=== PATIENT | female | born 1950 ===

== ENCOUNTER 2024-02-09 14:14 | Day surgery (SDC) | payer MEDICARE, OTHER ==
[2024-02-09] VITALS (9 sets, daily range): BP systolic 115–157; BP diastolic 49–74; PULSE 69–79; RESP 16; TEMP 98.1; O2SAT 93–98
[~2024-02-09] VITALS: Ht 162.6 cm; Wt 75.4 kg
[2024-02-09] MEDS ORDERED: CLOP75TA34 PO (14:51)
[2024-02-09] MEDS ORDERED: PANT40TA54 PO (14:51)
[2024-02-09] MEDS ORDERED: LISI20TA28 PO (14:51)
[2024-02-09] MEDS ORDERED: ACYC-128 PO (14:51)
[2024-02-09] MEDS ORDERED: ROSU20TA73 PO (14:51)
[2024-02-09] MEDS ORDERED: DICY20TA17 PO (14:51)
[2024-02-09 15:25] LABS: BASOPHILS % (AUTO) 0.5 % (0-1); EOSINOPHILS # (AUTO) 0.2 X10'3 (0-0.9); EOSINOPHILS % (AUTO) 2.2 % (0-6); HEMATOCRIT 38.4 % (35.0-45.0); HEMOGLOBIN 12.9 g/dl (12.0-16.0); LYMPHOCYTES # (AUTO) 2.3 X10'3 (1.1-4.8); LYMPHOCYTES % (AUTO) 23.5 % (21-51); MEAN CORPUSCULAR HEMOGLOBIN 31.3 PG (27.0-31.0); MEAN CORPUSCULAR HGB CONC 33.6 g/dL (33.0-36.5); MEAN CORPUSCULAR VOLUME 93.2 FL (78-98); MEAN PLATELET VOLUME 7.6 FL (7.4-10.4); MONOCYTES # (AUTO) 0.9 X10'3 (0-0.9); MONOCYTES % (AUTO) 9.6 % (2-12); NEUTROPHILS # (AUTO) 6.2 X10'3 (1.8-7.7); NEUTROPHILS % (AUTO) 64.2 % (42-75); PLATELET COUNT 322 X10'3 (140-440); RED BLOOD COUNT 4.12 X10'6 (4.20-5.60); RED CELL DISTRIBUTION WIDTH 13.4 % (11.5-14.5); WHITE BLOOD COUNT 9.7 X10'3 (4.5-11.0)
[2024-02-09 15:38] LABS: APTT 25 SECONDS (22-32); PROTHROMBIN TIME 10.3 SECONDS (9.0-12.0)
[2024-02-09 15:42] LABS: ALBUMIN 3.1 G/DL (3.4-5.0); ANION GAP 12 (8-16); BLOOD UREA NITROGEN 18 MG/DL (7-18); BUN/CREATININE RATIO 23.4 (10.0-20.0); CALCIUM 8.6 MG/DL (8.5-10.1); CHLORIDE 108 MMOL/L (99-107); CREATININE 0.77 MG/DL (0.40-0.90); GLUCOSE 70 MG/DL (70-104); SODIUM 143 MMOL/L (135-145); eCRCL 56 ML/MIN; eGFR 73 ML/MIN
[2024-02-09 15:45] LABS: POTASSIUM 4.2 MMOL/L (3.5-5.1)
[2024-02-09] MEDS: diphenhydrAMINE 25mg capsule PO PRN (15:52)
[2024-02-09] MEDS: normal saline 1,000 ML IV SCH (15:55)
[2024-02-09] MEDS: LORazepam 0.5 MG tablet PO PRN (15:55)
[2024-02-09] MEDS ORDERED: heparin 1,000unit/ml 10ml vial 0 ML ONE (16:04)
[2024-02-09] MEDS ORDERED: LIDOcaine 1% 30ml preserv. free vial ONE (16:04)
[2024-02-09] MEDS ORDERED: phenylephrine 10mg/ml inj. -priapism dosing ONE (16:04)
[2024-02-09] MEDS ORDERED: DOPamine 400mg/D5W 250ml 0 ML IV ONE (16:05)
[2024-02-09] MEDS ORDERED: atropine 0.1mg/ml 10ml syringe ONE (16:05)
[2024-02-09] MEDS ORDERED: iohexol 350MG/ML 100ml bottle IV ONE (16:05)
[2024-02-09] MEDS ORDERED: fentaNYL/PF 50MCG/1 ML 2ML syringe ONE (17:02)
[2024-02-09] MEDS ORDERED: HYDROcodone/acetaminophen 5mg/325mg tablet PO PRN (18:15)
[2024-02-09] MEDS ORDERED: OXAZEpam 15mg capsule PO PRN (18:15)
[2024-02-09] MEDS ORDERED: ondansetron/PF 4mg/2ml inj IV PRN (18:15)
[2024-02-09] MEDS ORDERED: proCHLORperazine 10 MG/2 ml inj IV PRN (18:15)
[2024-02-09] MEDS ORDERED: HYDROcodone/acetaminophen 10/325mg tab PO PRN (18:15)
== END 2024-02-09 20:05 | disposition home or self-care (01) ==
LOC: SSTAY O 14:14
PROVIDERS: ATTEND Student in an Organized Health Care Education/Training Program
DX: I65.23 Occlusion and stenosis of bilateral carotid arteries (principal); I10 Essential (primary) hypertension; E78.5 Hyperlipidemia, unspecified; Z85.3 Personal history of malignant neoplasm of breast; Z88.5 Allergy status to narcotic agent; Z88.8 Allergy status to other drugs, medicaments and biological substances; Z79.01 Long term (current) use of anticoagulants; Z79.899 Other long term (current) drug therapy; Z83.3 Family history of diabetes mellitus; Z82.49 Family history of ischemic heart disease and other diseases of the circulatory system
CPT/HCPCS: 36222; 36415; 80048; 85025; 85610; 85730; 93005; J1644; J2370; J3010; J3490; J7030; Q0163; Q9967; A6258; C1725; C1760; C1769; C1884; C1887; C1894; J0461; J1265